=== PATIENT | female | born 1970 | race Caucasian/White ===

== ENCOUNTER 2017-03-03 21:45 | Inpatient (IN) | payer BC ==
[~2017-03-03] VITALS: Ht 172.7 cm; Wt 77.2 kg
[~2017-03-03 21:45] MED LIST: ANTIVERT25 MG PO; DECADRON2 MG PO; LORTAB 5-325 M1 EACH PO; NICODERM CQ1 EAC2 TD; TYLENOL ARTHRI650 MG PO; WELLBUTRIN XL300 MG PO
[2017-03-04] MEDS ORDERED: FAMOTIDINE20 MG PO (11:26)
[2017-03-04] MEDS ORDERED: LEVETIRACETAM500 MG PO (11:27)
[2017-03-04 11:29] VITALS: BP 118/68
[2017-03-04 19:32] VITALS: BP 106/75
[2017-03-04 20:00] VITALS: BP 118/69
[2017-03-04 21:00] VITALS: BP 89/69
[2017-03-04 21:41] LABS: METH RESISTANT S AUREUS PCR NEGATIVE (NEGATIVE); PROBE CHECK PASS; SPECIMEN PROCESSING CONTROL PASS
[2017-03-04 22:00] VITALS: BP 109/71
[2017-03-04 23:00] VITALS: BP 87/56
[2017-03-05] VITALS (11 sets, daily range): BP systolic 92–118; BP diastolic 54–78
[2017-03-05 05:53] LABS: EOSINOPHIL (%) 0 % (0-5); HEMATOCRIT 38.4 % (36.0-46.0); IMMATURE GRANULOCYTE (%) 0.7 % (0.0-0.7); IMMATURE GRANULOCYTE COUNT 0.1 K/uL; INSTRUMENT ABS NEUTROPHIL CT 15.6 K/uL; LYMPHOCYTE COUNT 0.9 K/uL (1.0-2.8); MCH 29.3 PG (29.0-34.0); MCHC 33.1 G/DL (30.0-36.0); MCV 88.7 FL (83-99); MEAN PLAT.VOLUME 10.3 uM^3 (9.5-12.4); MONOCYTE (%) 6.9 % (3-12); MONOCYTE COUNT 1.2 K/uL (0-0.8); NEUTROPHIL (%) 87.2 % (45-76); NEUTROPHIL COUNT 15.6 K/uL (1.8-6.4); PLATELET COUNT 233 K/uL (156-360); RBC DIS.WIDTH-CV 13.1 % (11.8-14.6); RBC DIS.WIDTH-SD 42.5 % (39-53); RED BLOOD COUNT 4.33 M/uL (3.80-5.20); WHITE BLOOD COUNT 17.9 K/uL (4.1-10.2)
[2017-03-05 06:21] LABS: ANION GAP 9 MEQ/L (2-14); CHLORIDE 103 MEQ/L (99-109); GFR ESTIMATE (CALCULATED) > 59 mL/min/; GLUCOSE 94 mg/dL (70-99); POTASSIUM 4.5 MEQ/L (3.7-5.4); SAMPLE HEMOLYSIS CHECK 0; SAMPLE ICTERIC CHECK 0; SAMPLE LIPEMIA CHECK 0; SODIUM 140 MEQ/L (136-147); UREA NITROGEN (BUN) 15 mg/dL (9-23)
[2017-03-05] MEDS ORDERED: LORTAB 5-325 M1 EACH PO (13:01)
[2017-03-05] MEDS ORDERED: DECADRON2 MG PO (13:03)
== END 2017-03-05 13:20 | disposition home or self-care (01) | DRG 25 ==
LOC: ENRESERV 21:45 → 2SOUTH 03-04 10:46 → RAD 03-04 11:00 → 2SOUTH 03-04 11:00 → EDSTATUS 03-04 11:00 → ENRESERV 03-04 17:19 → 4WEST 03-04 18:04 → ENPENDDIS 03-05 → 4WEST 03-05 13:20
PROVIDERS: Internal Medicine; Neurological Surgery
PROC: 00B00ZZ Excision of Brain, Open Approach (ICD-10-PCS; principal; 2017-03-04)
DX: C79.31 Secondary malignant neoplasm of brain (principal); G93.6 Cerebral edema; C34.90 Malignant neoplasm of unspecified part of unspecified bronchus or lung; J44.9 Chronic obstructive pulmonary disease, unspecified; F17.200 Nicotine dependence, unspecified, uncomplicated; F41.9 Anxiety disorder, unspecified; F32.9 Major depressive disorder, single episode, unspecified
CPT/HCPCS: 70450; 77021; 80048; 85025; 86900; 86901; 87070; 87075; 87205; 87641; 88307; 88341 TC; 88342 TC; 94760; 94799; 99202; C1713; J0131; J0690; J1100; J1170; J2250; J2405; J2710; J3010; J3480; J8540

== ENCOUNTER 2017-07-20 08:09 | Day surgery (SDC) | payer BC ==
[~2017-07-20] VITALS: Ht 172.7 cm; Wt 74.4 kg
[~2017-07-20 08:09] MED LIST changes: +BACTRIM,SEPT1 TABLET PO; +FAMOTIDINE20 MG PO; +LEVETIRACETAM500 MG PO; +ONE DAILY WOME1 EACH PO
[2017-07-20 08:59] VITALS: BP 124/71
[2017-07-20 15:39] VITALS: BP 118/68
[2017-07-20 16:28] VITALS: BP 105/61
== END 2017-07-20 17:00 | disposition home or self-care (01) ==
LOC: SDC 08:09 → 2SOUTH 08:34 → EDSTATUS 10:10 → SDC 10:11
DX: T81.31XA Disruption of external operation (surgical) wound, not elsewhere classified, initial encounter (principal); T81.4XXA Infection following a procedure, initial encounter; C79.31 Secondary malignant neoplasm of brain; Z87.891 Personal history of nicotine dependence
CPT/HCPCS: 86850; 86900; 86901; 87205; C1713; J0330; J0690; J1170; J2250; J2405; J2710; J3010; J3370

== ENCOUNTER → 2017-09-05 | Outpatient (CLI) | payer BC ==
[~2017-09-05] MED LIST changes: +HYDROCODON-ACE1 EAC7 PO
== END | disposition home or self-care (01) ==
LOC: AMB 09:58
PROC: 08SPXZZ Reposition Left Upper Eyelid, External Approach (ICD-10-PCS; principal; 2017-09-05)
DX: H02.206 Unspecified lagophthalmos left eye, unspecified eyelid (principal); G51.0 Bell's palsy; T81.89XA Other complications of procedures, not elsewhere classified, initial encounter